=== PATIENT | female | born 1975 | race Caucasian/White ===

== ENCOUNTER 2019-08-09 19:11 | Emergency (ER) | payer OTHER ==
[~2019-08-09] VITALS: Ht 165.1 cm; Wt 103.4 kg
[~2019-08-09 19:11] MED LIST: BACTRIM; BACTRIM DS TAB1 EACH PO; CYMBALTA20 MG; CYMBALTA60 MG PO; IBUPROFEN 600600 M1 PO; LORTABELXR PO; MACROBID 100 M100 M1 PO; NOHOMEMEDICATIONS; NORCO 5-325 TA1 EACH PO; ONDANSETRON HCL4 M2 PO; PAXIL10 MG; PENICILLIN VK500 M1 PO; PHENERGAN 25 MG25 M1 PO; TOPAMAX 25 MG T25 M1 PO; ZPAK PO
[2019-08-09 20:10] LABS: ABSOLUTE BASOPHILS 0.1 thou/uL (0.0-0.2); ABSOLUTE EOSINOPHILS 0.1 thou/uL (0.0-0.7); ABSOLUTE LYMPHOCYTES 1.5 thou/uL (0.8-5.3); ABSOLUTE NEUTROPHILS 13.6 thou/uL (1.6-8.1); BASOPHILS 0.4 %; EOSINOPHILS 0.9 %; HEMATOCRIT 38.3 % (37.0-47.0); LYMPHOCYTES 9.4 %; MCV 88.2 fL (80.0-100.0); MPV 7.6 fl. (7.2-11.1); NUCLEATED RBCS 0 /100WBC; PLATELET COUNT* 333 thou/uL (150-400); POLYS 83.3 %; RBC 4.35 mil/uL (4.20-5.00); RDW-CV 13.7 % (10.5-14.5); WBC 16.3 thou/uL (4.0-11.0)
[2019-08-09 20:19] LABS: CALCIUM 8.9 mg/dL (8.5-10.1); CREATININE 0.9 mg/dL (0.6-1.3); POTASSIUM 3.6 mmol/L (3.5-5.1)
[2019-08-09 20:24] LABS: ALBUMIN 3.4 g/dL (3.4-5.0); TOTAL BILIRUBIN 0.5 mg/dL (<0.1-1.0); TOTAL PROTEIN 7.4 g/dL (6.4-8.2)
[2019-08-09] MEDS ORDERED: LIDOCAINE VISC100 ML PO (21:30)
[2019-08-09 21:43] VITALS: BP 125/80
== END 2019-08-09 21:44 | disposition home or self-care (01) ==
LOC: M.ERS 19:11
PROVIDERS: Nurse Practitioner Family
DX: J03.90 Acute tonsillitis, unspecified (principal); N80.9 Endometriosis, unspecified